=== PATIENT | female | born 1980 | race Caucasian/White ===

== ENCOUNTER 2018-10-31 22:04 | Emergency (ER) | payer MEDICAID ==
[2018-11-01 00:02] LABS: ADD MAN DIFF? NO
[2018-11-01 00:04] LABS: BASOPHILS % 0.7 % (0.0-2.0); EOSINOPHILS # 0.1 10^3/ul (0.0-0.5); EOSINOPHILS % 1.4 % (0.0-7.0); HEMATOCRIT 32.4 % (37.0-47.0); HEMOGLOBIN 11.2 g/dl (12.0-16.0); LYMPHOCYTES # 2.3 10^3/ul (0.8-2.9); LYMPHOCYTES % 38.8 % (15.0-51.0); MEAN CORPUSCULAR HEMOGLOBIN 31.9 pg (29.0-33.0); MEAN CORPUSCULAR HGB CONC 34.6 g/dl (32.0-37.0); MEAN CORPUSCULAR VOLUME 92.3 fl (82.0-101.0); MEAN PLATELET VOLUME 9.7 fl (7.4-10.4); MONOCYTE # 0.6 10^3/ul (0.3-0.9); MONOCYTES % 10.1 % (0.0-11.0); NEUTROPHIL # 2.9 10^3/ul (1.6-7.5); PLATELET COUNT 198 10^3/UL (140-415); RED BLOOD COUNT 3.51 10^6/ul (4.20-5.40); RED CELL DISTRIBUTION WIDTH 11.7 % (11.5-14.5)
[2018-11-01 00:04] LABS: WHITE BLOOD COUNT 5.8 10^3/ul (4.8-10.8)
[2018-11-01] MEDS: ONDANSETRON 4 MG INJ IV (00:09)
[2018-11-01] MEDS: METHYLPREDNISOLONE 125 MG INJ IV (00:09)
[2018-11-01] MEDS: KETOROLAC 30 MG INJ IV (00:09)
[2018-11-01] MEDS: SOD CHLORIDE 0.9% 500 ML IV (00:10)
== END 2018-11-01 00:59 | disposition home or self-care (01) ==
LOC: FTE 11-01 00:59
DX: G43.511 Persistent migraine aura without cerebral infarction, intractable, with status migrainosus (principal)
CPT/HCPCS: 81025; 85025; 96374; 96375; 99284-25